=== PATIENT | male | born 1995 | race Caucasian/White ===

== ENCOUNTER 2016-06-21 17:24 | Emergency (ER) | payer BC, OTHER ==
[~2016-06-21] VITALS: Ht 185.4 cm; Wt 104.6 kg
[2016-06-21 17:50] VITALS: TEMP 37.4; Ht 185.4 cm; Wt 104.6 kg
[2016-06-21] MEDS ORDERED: AMOXICILLIN/CLAVULANATE TAB 875 MG TAB PO STA (19:22)
[2016-06-21] MEDS ORDERED: AMOXICIL/CLAVU 875MG HOME PACK PO STA (19:22)
--- NOTE | 2016-06-21 19:41 | DIAGNOSTIC IMAGING REPORT ---
RIGHT HAND MIN 3 VIEWS ROUTINE CLINICAL HISTORY: Bitten by dog, punctures to hands Right trauma COMPARISON: None. DISCUSSION: The bones and joint spaces appear intact. There is no evidence of fracture, dislocation or bony disease. Mild soft tissue edema IMPRESSION: Mild soft tissue edema. No acute bony abnormality. Electronically signed by: Wilberto Bowman M.D. 06/21/2016 7:39 PM Dictated Date/Time: 06/21/2016 7:39 PM
--- NOTE | 2016-06-21 19:43 | DIAGNOSTIC IMAGING REPORT ---
LEFT HAND MIN 3 VIEWS ROUTINE CLINICAL HISTORY: Bitten by dog, punctures to hands trauma COMPARISON: None. DISCUSSION: The bones and joint spaces appear intact. There is no evidence of fracture, dislocation or bony disease. There is no evidence for soft tissue swelling. IMPRESSION: Negative study. Electronically signed by: Wilberto Bowman M.D. 06/21/2016 7:41 PM Dictated Date/Time: 06/21/2016 7:40 PM
[2016-06-21] MEDS ORDERED: AMOX875T PO (20:16)
--- NOTE | 2016-06-21 20:20 | EMERGENCY ROOM VISIT NOTE ---
History First contact with patient: 19:16 Chief Complaint: BITE Stated Complaint: DOG BITE L AND R HAND History of Present Illness The patient is a 20 year old male who presents to the Emergency Room via private vehicle with complaints of "dog bite left and right hand". Patient states that around 2:30 or 3 PM he was at his girlfriends uncles house and he left the dog out of the house and did not put the dog leash, as he was unaware that he needed to the dog ran off. He then ran after the dog and the dog became scared turning on him and biting him. The dog bit him on the hands bilaterally. The dog was a husky and weighs between 40 and 60 pounds. The dog shots are believed to be up-to-date. Patient is right-handed. There has been constant bleeding from the right hand between the thumb and index finger since the event. He rates the pain is a 3/10. There are sharp pain in the right thumb. Minimal tingling in the right thumb. Patient's tetanus is up-to-date. Review of Systems A complete 6-point Review of Systems was discussed with the patient, with pertinent positives and negatives listed in the History of Present Illness. All remaining Review of Systems questions can be considered negative unless otherwise specified. Past Medical/Surgical History Medical Problems: (1) FX PHALANX, HAND NOS-CL (2) NASAL BONE FX-CLOSED Family History No pertinent family history at this time. Social History Smoking Status: Current Every Day Smoker Alcohol Use: none Drug Use: none Marital Status: single Housing Status: lives with family Occupation Status: employed Current/Historical Medications Scheduled Amoxicillin & Pot Clavulanate (Augmentin 875-125 mg), 1 TAB PO BID Allergies Coded Allergies: Ibuprofen (Unverified Adverse Reaction, Mild, STOMACH UPSET/NAUSEA, ) Physical Exam Vital Signs Date Time Temp Pulse Resp B/P Pulse Ox O2 Delivery O2 Flow Rate FiO2 06/21/16 20:33 100 20 132/82 97 06/21/16 17:50 37.4 120 18 135/78 98 Room Air Physical Exam VITAL SIGNS - Vital signs and nursing notes were reviewed. Patient is afebrile , normotensive, tachycardic at 120 bpm and is saturating well on room air at 98% . GENERAL -20-year-old male appearing his stated age who is in no acute distress. Communicates well with provider and answers questions appropriately. SKIN - Without rashes. There is erythema overlying the punctate puncture wounds bilaterally. There are 5 teeth perez on the dorsal aspect of the left hand and a few puncture wounds on the palm. Left hand exhibits a deep puncture wound in the webspace between the thumb and index finger. There are also multiple puncture wounds on this hand. Most of the puncture wounds are superficial, with one being deep in the webspace as noted above. Minimal active bleeding from this. No evidence of infection at this time. HEAD - NC/AT. EXTREMITIES - No clubbing or peripheral cyanosis. No pretibial edema present. Vascular intact in the upper extremity. Minimal tenderness to palpation. Full range of motion of all digits and hands. No evidence of retained teeth. Intact to sensation. Neurovascularly intact. +5/5 strength noted in UE/LE bilaterally. Medical Decision & Procedures ER Provider Diagnostic Interpretation: LEFT HAND MIN 3 VIEWS ROUTINE CLINICAL HISTORY: Bitten by dog, punctures to hands trauma COMPARISON: None. DISCUSSION: The bones and joint spaces appear intact. There is no evidence of fracture, dislocation or bony disease. There is no evidence for soft tissue swelling. IMPRESSION: Negative study. Electronically signed by: Wilberto Bowman M.D. 06/21/2016 7:41 PM Dictated Date/Time: 06/21/2016 7:40 PM RIGHT HAND MIN 3 VIEWS ROUTINE CLINICAL HISTORY: Bitten by dog, punctures to hands Right trauma COMPARISON: None. DISCUSSION: The bones and joint spaces appear intact. There is no evidence of fracture, dislocation or bony disease. Mild soft tissue edema IMPRESSION: Mild soft tissue edema. No acute bony abnormality. Electronically signed by: Wilberto Bowman M.D. 06/21/2016 7:39 PM Dictated Date/Time: 06/21/2016 7:39 PM Medications Administered Medications (Trade) Dose Ordered Sig/Neelam Route Start Time Stop Time Status Last Admin Dose Admin Amoxicillin/ Clavulanate Potassium (Augmentin 875MG Home Pack) 1 homepack UD STAT PO 06/21/16 19:22 06/21/16 19:24 DC 06/21/16 20:18 1 HOMEPACK Amoxicillin/ Clavulanate Potassium (Augmentin Tab) 875 mg NOW STAT PO 06/21/16 19:22 06/21/16 19:24 DC 06/21/16 20:18 875 MG Medical Decision Patient was seen and evaluated as above. After obtaining a thorough history and physical examination radiographs of the hands bilaterally were obtained to rule out fracture, retained teeth. These were negative for either. Patient's hands were cleansed with normal saline. Thorough irrigation of both hands was obtained. These were dressed with bacitracin and covered with Telfa dressing and Coban. Patient did not want anything for pain. Patient did not want any splints. He was given one dose of Augmentin here as well as a home pack. The remainder was sent to his pharmacy for prophylaxis against dog bite. The patient was educated to follow-up regarding today's visit with the orthopedic hand specialist as listed above. He is to return with any new/concerning symptoms or signs of infection which were thoroughly discussed. He was educated upon management. He was educated upon worrisome symptoms in which to return, had questions answered prior to discharge and was discharged home in good condition. The appropriate paperwork was completed for reporting this incident. In evaluation treatment this patient following differential diagnoses were entertained: Hand fracture, retained teeth, cellulitis, among others. Impression Primary Impression: Bite by animal Additional Impression: Cat bite Departure Information Dispostion Home / Self-Care Condition GOOD Prescriptions Amoxicillin & Pot Clavulanate (Augmentin 875-125 mg) 1 Tab Tab 1 TAB PO BID for 9 Days, #18 TAB Prov: Adiel Salter PA-C 06/21/16 Referrals No Doctor, Assigned (PCP) Arthur Gardner MD Patient Instructions My [facility] Additional Instructions You were seen in the emergency department for a dog bite of your hands. X-rays did not reveal any broken bones or retained teeth. Please keep the bandages on for 24 hours and then replace them. Please use Neosporin or bacitracin on the bite wounds for the next 2-3 days. After that please apply dry bandages to the areas. You have indicated that the dog's rabies vaccines are up-to-date. You've been prescribed Augmentin to be taken twice daily for the next 10 days. The remainder was sent to her pharmacy for pickup. This is to help prevent infection from the dog bite. It is recommended he follow-up with a hand specialist regarding today's visit. You've the provided number for a hand surgeon. Please call the number first thing tomorrow morning to schedule follow-up. Please return to the emergency department with any worsening of symptoms to include worsening pain, fevers, chills, redness, swelling, red streaking up yourarm or any new/concerning symptoms. Please return to the emergency department with any new/concerning symptoms. Problem Qualifiers Additional Impression: Cat bite Encounter type: initial encounter Qualified Codes: W55.01XA - Bitten by cat , initial encounter
[2016-06-21 20:33] VITALS: BP 132/82; PULSE 100; O2SAT 97
== END 2016-06-21 20:35 | disposition home or self-care (01) ==
LOC: C.EDB 17:25 → C.EDD 20:35
DX: S61.401A Unspecified open wound of right hand, initial encounter (principal); S61.402A Unspecified open wound of left hand, initial encounter; W54.0XXA Bitten by dog, initial encounter; F17.200 Nicotine dependence, unspecified, uncomplicated

== ENCOUNTER → 2017-02-18 | Outpatient (CLI) | payer BC ==
[~2017-02-18] MED LIST: ONDA4TAB10 SL
[2017-02-18 12:29] LABS: BASO % 0.1 %; BASO ABS # 0.01 K/uL (0-0.2); COMPLETE YES; EOS % 0.5 %; HEMATOCRIT 46.4 % (42-52); IG% 0.1 %; LYMPH % 20.2 %; LYMPH ABS # 1.62 K/uL (1.2-3.4); MEAN CELL VOLUME 84.8 fL (80-100); MEAN CORPUSCULAR HEMOGLOBIN 30.5 pg (25-34); MEAN PLATELET VOLUME 11.1 fL (7.4-10.4); MONO % 5.9 %; NEUT % 73.2 %; PLATELET COUNT 203 K/uL (130-400); RED BLOOD COUNT 5.47 M/uL (4.7-6.1); WHITE BLOOD COUNT 8.03 K/uL (4.8-10.8)
[2017-02-18 12:51] LABS: ALT/SGPT 22 U/L (12-78); AMYLASE 52 U/L (25-115); AST/SGOT 7 U/L (15-37); BLOOD UREA NITROGEN 14 mg/dl (7-18); BUN/CREATININE RATIO 12.5 (10-20); CALCIUM 8.9 mg/dl (8.5-10.1); CARBON DIOXIDE 28 mmol/L (21-32); CHLORIDE 105 mmol/L (98-107); CREATININE 1.08 mg/dl (0.60-1.40); GLUCOSE 100 mg/dl (70-99); POTASSIUM 4.1 mmol/L (3.5-5.1); SODIUM 139 mmol/L (136-145)
[2017-02-18 12:56] LABS: ALKALINE PHOSPHATASE 75 U/L (45-117)
== END | disposition home or self-care (01) ==
LOC: C.LABBFT 11:06
PROVIDERS: ATTEND Physician Assistant Medical
DX: R11.0 Nausea (principal)

== ENCOUNTER 2017-02-22 12:31 | Emergency (ER) | payer BC ==
[~2017-02-22] VITALS: Ht 188 cm; Wt 102.4 kg
[2017-02-22 12:53] VITALS: TEMP 37; Ht 188 cm; Wt 102.4 kg
[2017-02-22] MEDS ORDERED: SODIUM CHLORIDE 0.9% 1000ML 1,000 ML IV STA (13:39)
[2017-02-22] MEDS ORDERED: ONDANSETRON INJ 2 MG/ML 2 ML VIAL IV STA (13:39)
[2017-02-22] MEDS ORDERED: FAMOTIDINE 20MG/102 ML D5W IV STA (14:07)
[2017-02-22] MEDS ORDERED: OPTIRAY 320 IV PRN (15:00)
[2017-02-22 15:06] LABS: URINE APPEARANCE CLOUDY (CLEAR); URINE COLOR DK YELLOW; URINE NITRITE NEG (NEG); URINE SPECIFIC GRAVITY 1.034 (1.000-1.030); UROBILINOGEN POS (NEG)
[2017-02-22 15:06] LABS: BASO % 0.1 %; BASO ABS # 0.01 K/uL (0-0.2); COMPLETE YES; EOS % 0.1 %; HEMATOCRIT 45.3 % (42-52); IG% 0.3 %; LYMPH % 19.4 %; MEAN CELL VOLUME 83.1 fL (80-100); MEAN CORPUSCULAR HEMOGLOBIN 30.1 pg (25-34); MEAN CORPUSCULAR HGB CONC 36.2 g/dl (32-36); MEAN PLATELET VOLUME 10.1 fL (7.4-10.4); MONO % 8.6 %; NEUT % 71.5 %; PLATELET COUNT 191 K/uL (130-400); RED BLOOD COUNT 5.45 M/uL (4.7-6.1); WHITE BLOOD COUNT 7.75 K/uL (4.8-10.8)
[2017-02-22 15:11] LABS: MANUAL MICROSCOPIC REQUIRED? NO; REVIEW REQ? NO; URINE BILIRUBIN NEG (NEG)
[2017-02-22 15:43] LABS: BUN/CREATININE RATIO 14.5 (10-20); CREATININE 1.15 mg/dl (0.60-1.40); MAGNESIUM 2.1 mg/dl (1.8-2.4); POTASSIUM 3.1 mmol/L (3.5-5.1)
[2017-02-22 15:45] LABS: BENZODIAZEPINE, URINE NEG (NEG); COCAINE,URINE NEG (NEG); PHENCYCLIDINE, URINE NEG (NEG)
[2017-02-22 15:46] LABS: ALB/GLOB RATIO 1.1 (0.9-2)
--- NOTE | 2017-02-22 17:09 | DIAGNOSTIC IMAGING REPORT ---
CT SCAN OF THE ABDOMEN AND PELVIS WITH IV CONTRAST CLINICAL HISTORY: Epigastric abdominal pain. Nausea and vomiting. COMPARISON STUDY: Abdominal ultrasound dated 02/22/2017 TECHNIQUE: Following the IV administration of 93 cc of Optiray 320, CT scan of the abdomen and pelvis is performed from the lung bases to the proximal femora. Images are reviewed in the axial, sagittal, and coronal planes. IV contrast was administered without complication. A dose lowering technique was utilized adhering to the principles of ALARA. CT DOSE: 580.96 mGy.cm FINDINGS: Lung bases: The heart is normal in size and without pericardial effusion. There are trace pleural effusions. The lung bases are otherwise clear. Liver: The contrast-enhanced liver is normal in size, contour, and attenuation. There is no intrahepatic biliary ductal dilatation. The hepatic veins and portal veins are patent. Gallbladder: Unremarkable. Spleen: Normal in size and attenuation. Pancreas: Unremarkable. Adrenal glands: Unremarkable. Kidneys: The contrast enhanced kidneys are normal in size and without hydronephrosis. The kidneys enhance symmetrically. Abdominal vasculature: The abdominal aorta is normal in course and caliber. There is a fat-containing umbilical hernia. Bowel: The small bowel and colon are normal in course and caliber. The appendix is well-visualized and normal. Peritoneum: There is no intraperitoneal free air or abdominal ascites. Lymphadenopathy: None. Pelvic viscera: The bladder, prostate, and seminal vesicles are normal as visualized. Skeletal structures: No lytic or blastic lesions are seen. A posterior disc bulge is noted at L5-S1. IMPRESSION: 1. There are no acute infectious or inflammatory findings in the abdomen or pelvis. 2. Trace pleural effusions are identified. Electronically signed by: Shahab Gaines M.D. 02/22/2017 5:08 PM Dictated Date/Time: 02/22/2017 5:00 PM
[2017-02-22] MEDS ORDERED: ONDA4TAB10 SL (17:48)
--- NOTE | 2017-02-22 17:50 | EMERGENCY ROOM VISIT NOTE ---
History First contact with patient: 13:22 Chief Complaint: NAUSEA Stated Complaint: NAUSEA, MILD PAIN, NOT EATEN IN 3-4 DAYS History of Present Illness Patient is an otherwise healthy 21-year-old male who presents the emergency department accompanied by his grandparents for evaluation of nausea 2 weeks. He states his symptoms started out of the blue about 2 weeks ago, when he began to wake up feeling nauseous, and would vomit on occasion. He states that his symptoms were always worse first thing in the morning. The vomiting has improved somewhat, but he still notes near constant nausea. He now has more dry heaves than actual vomiting, because he has been on a clear diet, consisting mostly of sports drinks. He has not had any substantial food to eat for some time. His grandmother that he lost 10 pounds in the last 2 weeks. He notes very slight epigastric pain, but rates it a 1/10, and states that it is tolerable. The nausea is his primary concern. He reports decreased bowel movements, and states that they have been loose, he has he is not eating. He denies diarrhea, no melena, easy or hematemesis. He denies any urinary symptoms. He was seen by his primary care provider last week. He had some laboratory studies performed at that time which were normal, and was started on Nexium, which he has been taking for the last 5 days. He also had an ultrasound earlier today, which was normal per the patient. He was supposed to have a follow-up appointment in about a week and a half, but he states he could not wait to the appointment. He denies any sick contacts at home. No unusual food or water consumption, no recent antibiotic use or foreign travel. He has well water as a source at home, but his grandparents drink the same water and are not ill. He does admit to heavy caffeine consumption, he states he drinks mostly Mountain Dew. Uses chewing tobacco but does not smoke, drinks alcohol rarely, last was about 2 months ago. He denies any illicit drug use. Review of Systems Review of systems as per HPI. All other systems reviewed were negative. 10 systems reviewed. Past Medical/Surgical History Medical Problems: (1) Back pain (2) Back pain (3) Back strain (4) Bite by animal (5) Bite by animal (6) Cat bite (7) Cat bite (8) FX PHALANX, HAND NOS-CL (9) Injury of right hand (10) Lumbar back pain (11) NASAL BONE FX-CLOSED (12) No Known Active Medical Problems (13) Rhomboid muscle strain Surgical Problems: (1) History of nasal surgery Electronic medical records are reviewed and summarized as above/below. See Problem List. Social History Smoking Status: Former Smoker Alcohol Use: none Drug Use: none Marital Status: single Housing Status: lives with family Occupation Status: employed Current/Historical Medications Scheduled PRN Ondasetron Odt (Zofran Odt), 4 MG SL Q6H PRN for Nausea or Vomiting Physical Exam Vital Signs Date Time Temp Pulse Resp B/P (MAP) Pulse Ox O2 Delivery O2 Flow Rate FiO2 02/22/17 18:02 79 16 133/60 98 02/22/17 17:11 104 20 141/87 98 Room Air 02/22/17 15:28 80 16 126/76 99 Room Air 02/22/17 14:38 90 18 129/79 98 Room Air 02/22/17 12:53 37.0 104 20 131/61 99 Room Air Physical Exam CONSTITUTIONAL: Patient is a well-appearing 21-year-old white male who is awake and alert and in no acute distress. EYES: Pupils equal, round, reactive to light and accommodation. EOMs intact without nystagmus. Sclera are anicteric. ENT: Tympanic membranes intact, with normal landmarks. External canals are clear. Oral and nasopharynx are clear. Mucous membranes are moist, no lesions , tongue and gums appear normal. NECK: No bruits auscultated. Supple without lymphadenopathy. No thyromegaly. No meningeal signs. Full active range of motion without discomfort. CARDIOVASCULAR: Regular rate and rhythm, with normal S1 and S2, no murmur or gallop or rub is heard. No carotid bruits auscultated. No JVD. Peripheral pulses easily palpable. RESPIRATORY: Breath sounds equal and clear to auscultation without wheezes, rales, or rhonchi heard. Full and equal chest expansion without accessory muscle use or retractions. ABDOMEN: Bowel sounds are present. Abdomen is soft, nondistended, mildly tender in the epigastric area, without guarding, rebound or rigidity. There is no pain in the right upper quadrant. Negative Gray sign. INTEGUMENTARY: No lesions or rash, normal skin turgor. LYMPH: No lymphadenopathy. Medical Decision & Procedures ER Provider Diagnostic Interpretation: Outpatient ultrasound of the abdomen performed earlier today is as follows: ABDOMEN COMPLETE (US) CLINICAL HISTORY: 21 years-old Male with R11.0. Acute nausea. TECHNIQUE: Multiple real time sonographic images of the abdomen were obtained assessing collier-scale appearance. FINDINGS: PANCREAS: The pancreas is partially obscured by bowel gas. The visualized portions of the pancreas are normal without focal lesion or pancreatic duct dilatation. LIVER: The liver demonstrates a homogeneous parenchymal echotexture. There is no intrahepatic bile duct dilation, focal lesion, or contour nodularity. There is no ascites. GALLBLADDER: The gallbladder is fluid-filled without cholelithiasis, wall thickening, or pericholecystic fluid. Negative sonographic Gray's sign. The common bile duct measures 0.3 cm. RIGHT KIDNEY: The right kidney measures 12.8 cm. The parenchymal echotexture and cortical thickness are normal. No nephrolithiasis or hydronephrosis. LEFT KIDNEY: The left kidney measures 11.6 cm. The parenchymal echotexture and cortical thickness are normal. No nephrolithiasis or hydronephrosis. SPLEEN: The spleen measures 12 cm and is normal in echotexture. No focal lesions are identified. VASCULATURE: Imaged portions of the aorta and IVC are unremarkable. Aortic bifurcation not visualized secondary to scarring bowel gas. IMPRESSION: Unremarkable right upper quadrant ultrasound. No cholelithiasis, sonographic evidence of acute cholecystitis or biliary ductal dilation. The above report was generated using voice recognition software. It may contain grammatical, syntax or spelling errors. Electronically signed by: Morgan Zuñiga M.D. 02/22/2017 8:26 AM Dictated Date/Time: 02/22/2017 8:[address] SCAN OF THE ABDOMEN AND PELVIS WITH IV CONTRAST CLINICAL HISTORY: Epigastric abdominal pain. Nausea and vomiting. COMPARISON STUDY: Abdominal ultrasound dated 02/22/2017 TECHNIQUE: Following the IV administration of 93 cc of Optiray 320, CT scan of the abdomen and pelvis is performed from the lung bases to the proximal femora. Images are reviewed in the axial, sagittal, and coronal planes. IV contrast was administered without complication. A dose lowering technique was utilized adhering to the principles of ALARA. CT DOSE: 580.96 mGy.cm FINDINGS: Lung bases: The heart is normal in size and without pericardial effusion. There are trace pleural effusions. The lung bases are otherwise clear. Liver: The contrast-enhanced liver is normal in size, contour, and attenuation. There is no intrahepatic biliary ductal dilatation. The hepatic veins and portal veins are patent. Gallbladder: Unremarkable. Spleen: Normal in size and attenuation. Pancreas: Unremarkable. Adrenal glands: Unremarkable. Kidneys: The contrast enhanced kidneys are normal in size and without hydronephrosis. The kidneys enhance symmetrically. Abdominal vasculature: The abdominal aorta is normal in course and caliber. There is a fat-containing umbilical hernia. Bowel: The small bowel and colon are normal in course and caliber. The appendix is well-visualized and normal. Peritoneum: There is no intraperitoneal free air or abdominal ascites. Lymphadenopathy: None. Pelvic viscera: The bladder, prostate, and seminal vesicles are normal as visualized. Skeletal structures: No lytic or blastic lesions are seen. A posterior disc bulge is noted at L5-S1. IMPRESSION: 1. There are no acute infectious or inflammatory findings in the abdomen or pelvis. 2. Trace pleural effusions are identified. Laboratory Results 02/22/17 14:35 Red Blood Count 5.45, Mean Corpuscular Volume 83.1, Mean Corpuscular Hemoglobin 30.1, Mean Corpuscular Hemoglobin Concent 36.2, Mean Platelet Volume 10.1, Neutrophils (%) (Auto) 71.5, Lymphocytes (%) (Auto) 19.4, Monocytes (%) (Auto) 8.6, Eosinophils (%) (Auto) 0.1, Basophils (%) (Auto) 0.1, Neutrophils # (Auto) 5.54, Lymphocytes # (Auto) 1.50, Monocytes # (Auto) 0.67, Eosinophils # (Auto) 0.01, Basophils # (Auto) 0.01 02/22/17 14:35 Test 02/22/17 14:30 02/22/17 14:35 Urine Color DK YELLOW Urine Appearance CLOUDY (CLEAR) Urine pH 6.0 (4.5-7.5) Urine Specific [place] 1.034 (1.000-1.030) Urine Protein TRACE (NEG) Urine Glucose (UA) NEG (NEG) Urine Ketones 3+ (NEG) Urine Occult Blood NEG (NEG) Urine Nitrite NEG (NEG) Urine Bilirubin NEG (NEG) Urine Urobilinogen POS (NEG) Urine Leukocyte Esterase NEG (NEG) Urine WBC (Auto) 1-5 /hpf (0-5) Urine RBC (Auto) 5-10 /hpf (0-4) Urine Hyaline Casts (Auto) 1-5 /lpf (0-5) Urine Epithelial Cells (Auto) 10-20 /lpf (0-5) Urine Bacteria (Auto) NEG (NEG) Urine Opiates Screen NEG (NEG) Urine Methadone, Qualitative NEG (NEG) Urine Barbiturates NEG (NEG) Urine Phencyclidine (PCP) Level NEG (NEG) Ur Amphetamine/Methamphetamine NEG (NEG) MDMA (Ecstasy) Screen NEG (NEG) Urine Benzodiazepines Screen NEG (NEG) Urine Cocaine Metabolite NEG (NEG) Urine Marijuana (THC) POS (NEG) White Blood Count 7.75 K/uL (4.8-10.8) Red Blood Count 5.45 M/uL (4.7-6.1) Hemoglobin 16.4 g/dL (14.0-18.0) Hematocrit 45.3 % (42-52) Mean Corpuscular Volume 83.1 fL (80-100) Mean Corpuscular Hemoglobin 30.1 pg (25-34) Mean Corpuscular Hemoglobin Concent 36.2 g/dl (32-36) Platelet Count 191 K/uL (130-400) Mean Platelet Volume 10.1 fL (7.4-10.4) Neutrophils (%) (Auto) 71.5 % Lymphocytes (%) (Auto) 19.4 % Monocytes (%) (Auto) 8.6 % Eosinophils (%) (Auto) 0.1 % Basophils (%) (Auto) 0.1 % Neutrophils # (Auto) 5.54 K/uL (1.4-6.5) Lymphocytes # (Auto) 1.50 K/uL (1.2-3.4) Monocytes # (Auto) 0.67 K/uL (0.11-0.59) Eosinophils # (Auto) 0.01 K/uL (0-0.5) Basophils # (Auto) 0.01 K/uL (0-0.2) RDW Standard Deviation 37.4 fL (36.4-46.3) RDW Coefficient of Variation 12.5 % (11.5-14.5) Immature Granulocyte % (Auto) 0.3 % Immature Granulocyte # (Auto) 0.02 K/uL (0.00-0.02) Erythrocyte Sedimentation Rate 7 mm/hr (0-14) Anion Gap 8.0 mmol/L (3-11) Est Creatinine Clear Calc Drug Dose 128.7 ml/min Estimated GFR () 104.1 Estimated GFR (Non- 89.8 BUN/Creatinine Ratio 14.5 (10-20) Calcium Level 9.0 mg/dl (8.5-10.1) Magnesium Level 2.1 mg/dl (1.8-2.4) Total Bilirubin 0.7 mg/dl (0.2-1) Aspartate Amino Transf (AST/SGOT) 8 U/L (15-37) Alanine Aminotransferase (ALT/SGPT) 15 U/L (12-78) Alkaline Phosphatase 73 U/L (45-117) Total Protein 8.1 gm/dl (6.4-8.2) Albumin 4.3 gm/dl (3.4-5.0) Globulin 3.8 gm/dl (2.5-4.0) Albumin/Globulin Ratio 1.1 (0.9-2) Lipase 77 U/L (73-393) Medications Administered Medications (Trade) Dose Ordered Sig/Neelam Route Start Time Stop Time Status Last Admin Dose Admin Sodium Chloride 1,000 ml @ 250 mls/hr Q4H STAT IV 02/22/17 13:39 02/22/17 17:38 DC 02/22/17 14:41 250 MLS/HR Ondansetron HCl (Zofran Inj) 4 mg NOW STAT IV 02/22/17 13:39 02/22/17 13:42 DC 02/22/17 14:44 4 MG Famotidine (Pepcid 20mg/100 ml) 20 mg ONE STAT IV 02/22/17 14:07 02/22/17 14:08 DC 02/22/17 14:45 20 MG ED Course The patient was seen and assessed as above. His old records were reviewed, specifically his outpatient laboratory studies and ultrasound from last week. He presents emergency department for evaluation of epigastric pain and nausea 2 weeks. IV lock was initiated. He was hydrated with normal saline solution. He was medicated with Zofran 4 mg and Pepcid 20 mg IV. CBC with differential, sedimentation rate, CMP, magnesium level, lipase, urinalysis and urine toxicology screens were ordered. Given his persistent symptoms, CT scan of the abdomen pelvis with IV and oral contrast was ordered. Laboratory studies noted a normal white count at 7700. H&H is normal. Inflammatory markers are not elevated. Electrolytes note a very mild hypokalemia, remainder his electrolytes and renal functions are within normal limits. LFTs are not elevated. Lipase is not elevated. Urinalysis noted 3+ urine ketones. The patient was hydrated aggressively in the emergency department. No other worrisome findings for infection. Urine toxicology screen was positive for marijuana. CT scan of the abdomen and pelvis was negative. There was no acute infectious or inflammatory findings noted in the abdomen or the pelvis. Conservative care measures were discussed with the patient. Differential diagnoses entertained included GERD, esophagitis, gastritis, peptic ulcer disease, pancreatitis, biliary colic, acute cholecystitis, cholelithiasis, ascending cholangitis, bowel obstruction, perforation, among others. The patient denied any illicit drug use, however urine drug screen is positive for marijuana. Regular marijuana use can cause nausea/cyclic vomiting syndrome. He was encouraged to continue the Nexium that was previously recommended by his primary care provider. He can use Pepcid or Zantac for breakthrough. He was given Zofran as needed for nausea, and instructed on dietary changes. He was advised to refrain from marijuana use. He has a follow-up appointment with his PCP in about a week and a half, which he is encouraged to keep. The patient was discharged home with his family in good condition. Vital signs were stable. Medical Decision See Emergency Department course Medication Reconcilliation Current Medication List: was personally reviewed by mn Blood Pressure Screening Patient's blood pressure: Normal blood pressure Blood pressure disposition: Did not require urgent referral Impression Primary Impression: Nausea Additional Impression: Epigastric abdominal pain Departure Information Prescriptions Ondasetron Odt (ZOFRAN ODT) 4 Mg Tab 4 MG SL Q6H Y for Nausea or Vomiting, #20 TAB Prov: Makayla Slaughter PA 02/22/17 Referrals Arthur Jo M.D. (PCP) Patient Instructions My [facility] Additional Instructions Continue Nexium as prescribed. Acetaminophen(Tylenol) may be used for fever or pain. Use 1000mg every eight hours as needed. Avoid using more than 3000mg in a 24 hour period. This is available over the counter. Zofran(odansetron) tablets 4mg: Take one and allow it to dissolve in your mouth every four hours as needed for nausea or vomiting. May also use Pepcid or Zantac (available over the counter) according to package instructions. Read all the package inserts or medication information paperwork provided. If you have any questions or concerns call your primary provider, pharmacist or the ER for assistance. Rest and drink plenty of fluids as tolerated. Slow sips of water or sports drinks are recommended instead of large amounts all at once. Avoid alcohol, tobacco products, excessive caffeine, and any spicy or acidic foods. Stop smoking marijuana. Continue current medications. Once your stomach is settled start with a clear liquid diet (jello, soup broth, etc.) and then advance as tolerated. You should avoid full, heavy meals for about 24 hrs from the time your symptoms resolved. Return to the ER immediately for worsening or persistent abdominal pain, vomiting, fevers, chest pains, difficulty breathing, black or bloody stools, worsening of your condition, or as needed. Follow up with your primary physician in 1-2 days for a recheck of your current condition. Problem Qualifiers
[2017-02-22 18:02] VITALS: BP 133/60; PULSE 79; O2SAT 98
== END 2017-02-22 18:03 | disposition home or self-care (01) ==
LOC: C.EDB 12:32
DX: R11.0 Nausea (principal); R10.13 Epigastric pain; Z87.81 Personal history of (healed) traumatic fracture; Z87.828 Personal history of other (healed) physical injury and trauma; Z87.891 Personal history of nicotine dependence

== ENCOUNTER → 2017-02-22 | Outpatient (CLI) | payer BC ==
--- NOTE | 2017-02-22 08:27 | DIAGNOSTIC IMAGING REPORT ---
ABDOMEN COMPLETE (US) CLINICAL HISTORY: 21 years-old Male with R11.0. Acute nausea. TECHNIQUE: Multiple real time sonographic images of the abdomen were obtained assessing collier-scale appearance. FINDINGS: PANCREAS: The pancreas is partially obscured by bowel gas. The visualized portions of the pancreas are normal without focal lesion or pancreatic duct dilatation. LIVER: The liver demonstrates a homogeneous parenchymal echotexture. There is no intrahepatic bile duct dilation, focal lesion, or contour nodularity. There is no ascites. GALLBLADDER: The gallbladder is fluid-filled without cholelithiasis, wall thickening, or pericholecystic fluid. Negative sonographic Gray's sign. The common bile duct measures 0.3 cm. RIGHT KIDNEY: The right kidney measures 12.8 cm. The parenchymal echotexture and cortical thickness are normal. No nephrolithiasis or hydronephrosis. LEFT KIDNEY: The left kidney measures 11.6 cm. The parenchymal echotexture and cortical thickness are normal. No nephrolithiasis or hydronephrosis. SPLEEN: The spleen measures 12 cm and is normal in echotexture. No focal lesions are identified. VASCULATURE: Imaged portions of the aorta and IVC are unremarkable. Aortic bifurcation not visualized secondary to scarring bowel gas. IMPRESSION: Unremarkable right upper quadrant ultrasound. No cholelithiasis, sonographic evidence of acute cholecystitis or biliary ductal dilation. The above report was generated using voice recognition software. It may contain grammatical, syntax or spelling errors. Electronically signed by: Morgan Zuñiga M.D. 02/22/2017 8:26 AM Dictated Date/Time: 02/22/2017 8:22 AM
== END | disposition home or self-care (01) ==
LOC: C.ULTR 07:38
PROVIDERS: ATTEND Physician Assistant Medical
DX: R11.0 Nausea (principal)

== ENCOUNTER 2018-12-21 00:14 | Inpatient (IN) ==
[2018-12-21 01:10] LABS: Appearance Urine Clear (Clear); Bacteria Urine Automated Negative (Negative); Bilirubin Urine Negative (Negative); Blood Urine Trace (Negative); Color Urine Yellow; Glucose Urine UA Negative (Negative); Ketones Urine Negative (Negative); Leukocyte Esterase Urine Negative (Negative); Nitrite Urine Negative (Negative); Protein Urine Negative (Negative); RBC Urine Automated 0-4 /hpf (0-4); Specific Gravity Urine 1.021 (1.000-1.030); Urobilinogen Urine Negative (Negative)
[2018-12-21 01:17] LABS: Basophils # (auto) 0.01 K/uL (0-0.2); Basophils % (auto) 0.1 %; Eosinophils # (auto) 0.04 K/uL (0-0.5); Eosinophils % (auto) 0.5 %; Hematocrit (blood only) 43.8 % (42-52); Hemoglobin 16.2 g/dL (14.0-18.0); Immature Granulocytes # (auto) 0.01 K/uL (0.00-0.02); Immature Granulocytes % (auto) 0.1 %; Lymphocytes # (auto) 2.57 K/uL (1.2-3.4); Lymphocytes % (auto) 30.8 %; Mean Corpuscular Volume 83.3 fL (80-100); Mean Platelet Volume 9.5 fL (7.4-10.4); Monocytes # (auto) 0.46 K/uL (0.11-0.59); Monocytes % (auto) 5.5 %; Neutrophils # (auto) 5.25 K/uL (1.4-6.5); Platelet Count 222 K/uL (130-400); RDW Coefficient of Variation 12.7 % (11.5-14.5); RDW Standard Deviation 37.9 fL (36.4-46.3); Red Blood Count 5.26 M/uL (4.7-6.1); White Blood Count 8.34 K/uL (4.8-10.8)
[2018-12-21 01:27] LABS: Amphetamines+Metham, Urine Neg (Neg); Barbiturates, Urine Neg (Neg); Benzodiazepine, Urine Neg (Neg); Cocaine, Urine Neg (Neg); MDMA (Ecstacy), Urine Neg (Neg); Methadone, Urine Neg (Neg); Opiate, Urine Neg (Neg); Phencyclidine, Urine Neg (Neg)
[2018-12-21 01:40] LABS: Albumin Level 3.8 gm/dl (3.4-5.0); BUN Creatinine Ratio 14.4 (10-20); Calcium 8.2 mg/dl (8.5-10.1); Creatinine Clr Calc Pharmacy 128.5 ml/min; Est GFR (Non-African American) 91.5; Potassium 3.8 mmol/L (3.5-5.1)
[2018-12-21 01:44] LABS: Acetaminophen < 2 ug/ml (10-30); Salicylate < 1.7 mg/dl (2.8-20)
[2018-12-21 01:49] LABS: Albumin Globulin Ratio 1.1 (0.9-2); Bilirubin,Total 0.2 mg/dl (0.2-1); Globulin 3.5 gm/dl (2.5-4.0); Total Protein 7.3 gm/dl (6.4-8.2)
--- NOTE | 2018-12-21 05:39 | Emergency Department Note ---
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 Per the police, the patient sent texts to his ex- girlfriend that he was going to overdose. They note that the patient had a DUI 2 nights ago. They report that the patient recently lost his child. They state that the patient has guns in his house, but does not have access to them. They report that the patient lives with his grandparents. They state that the patient has a history of mental health issues and sees someone for it. Per the patient, he states that he took double to triple of his [place] medication tonight. He notes that he usually takes [place] and Lexapro for his depression, and reports that his normal dose was not working. He notes that he has been on this medication for a month now. He states that he took more than prescribed because he thought it would help his depression. The patient states that does not want to harm himself, but does not care what happens to him. He denies any past suicidal ideation. He denies any homicidal ideation. The patient reports that he has been having more frequent nightmares recently. He states his DUI the other night ago was his second one. The patient states that that night he drank a lot, but tonight he only had 5-6 beers. 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 He notes that he moved into his grandparents house after his second DUI. He states that he normally is shaky when he sits. He denies any abdominal pain. He denies any recent injury. The patient states that he smokes, but denies any drug use. He states that he is eating and drinking normally. Home Medications Home Medications Medication Instructions Recorded Confirmed Type escitalopram oxalate 10 mg PO DAILY 12/21/18 12/21/18 History lithium carbonate 150 mg PO DAILY 12/21/18 12/21/18 History lithium carbonate 300 mg PO HS 12/21/18 12/21/18 History Allergies Allergy/AdvReac Type Severity Reaction Status Date / Time No Known Allergies Allergy Verified 12/21/18 01:08 Past Med/Surg History Medical History Depression (Chronic) Social History Preferred Language: Frisian Feels Safe at Home: Yes Smoking Status: Current every day smoker Tobacco Type: cigarettes ; Review of Systems See HPI for pertinent positives & negatives. and A total of 10 systems reviewed and were otherwise negative Physical Exam Vital Signs Vital Signs - 24 hr 12/21/18 00:15 12/21/18 02:00 12/21/18 03:42 Temperature 36.8 C Temperature Source Oral Sepsis Recent Fever Within 48 Hours No Sepsis New/Unexplained Change in Mental Status No Sepsis Action Taken by Nursing No Action Required Pulse Rate 142 H Pulse Rate [Radial] 121 H 113 H Pulse Rhythm [Radial] Regular Respiratory Rate 20 20 18 Respiratory Effort / Characteristics Non-Labored Respiratory Depth Normal Respiratory Pattern Regular Blood Pressure 119/60 Blood Pressure [Right Arm] 133/51 L 113/48 L Blood Pressure Mean 79 Blood Pressure Mean [Right Arm] 78 69 Blood Pressure Position Sitting Pulse Oximetry 97 97 97 Oxygen Delivery Method Room Air Room Air Room Air HEENT: Head - normocephalic and atraumatic Pupils are equal, round, and reactive to light. Extraocular eye muscles are intact, and sclera are anicteric. Nose - moist nasal mucosa without discharge. Mouth - moist buccal mucosa. Oropharynx is nonerythematous and there is no tonsillar exudate or edema noted. Neck: Supple; no cervical lymphadenopathy. Heart: Tachycardic. Regular rhythm. There is a normal S1 and S2 with no murmurs, clicks, or gallops appreciated. Lungs: Clear to auscultation bilaterally with no wheezes, rales, or rhonchi. Abdomen: Soft, completely nontender, nondistended, with good bowel sounds. There are no palpable pulsatile masses or hepatosplenomegaly. There is no guarding, rigidity, or rebound noted. Extremities: No evidence of cyanosis, clubbing, or edema. There are easily palpable peripheral pulses. Skin: warm and dry with good turgor and no rashes. Psych: Patient is cooperative, has flat affect, denies homicidal ideation, when questioned about suicidal ideation he just does not care what happens. Course 0037: The patient was evaluated in room A5, and a complete history and physical examination were performed. Labs were drawn as above. I discussed the case with the state troopers who brought the patient to the emergency department. They filled out a 302 petition. 0147: I went to reevaluate the patient and he was sleeping. I woke him up and reviewed his lab results with him and asked if he was willing to admit himself as a psych inpatient. The patient states that he wants to go home. I will reevaluate the patient when he is more sober. 0420: I reevaluated the patient and discussed involuntary admission, the patient states that wants to talk to his diabetes educator, but reported that it was too early. I explained to him the difference between involuntary and voluntary admission. He was unwilling to talk anymore and refused to sign any paperwork. 0451: [facility] was called for involuntary commitment. 0539: The delicate presented to the emergency department and the patient will be admitted to [address] [place] [address]. Medical Decision Making Differential Diagnosis Differential diagnoses include but are not limited to alcohol abuse, mood disorder, thought disorder, medication overdose, and suicidal ideation. Medical Records Attestation: I reviewed the patient's medical records. Home Medications Current Medication List: was personally reviewed by me Laboratory Data Attestation: I reviewed the patient's lab results. Result diagrams: 12/21/18 00:56 12/21/18 00:56 Lab Results 12/21/18 12/21/18 12/21/18 Range/Units 00:35 00:35 00:56 WBC 8.34 (4.8-10.8) K/uL RBC 5.26 (4.7-6.1) M/uL Hgb 16.2 (14.0-18.0) g/dL Hct 43.8 (42-52) % MCV 83.3 (80-100) fL MCH 30.8 (25-34) pg MCHC 37.0 H (32-36) g/dL RDW Std Deviation 37.9 (36.4-46.3) fL RDW Coeff of Siva 12.7 (11.5-14.5) % Plt Count 222 (130-400) K/uL MPV 9.5 (7.4-10.4) fL Immature Gran % (Auto) 0.1 % Neut % (Auto) 63.0 % Lymph % (Auto) 30.8 % [place] % (Auto) 5.5 % Eos % (Auto) 0.5 % Baso % (Auto) 0.1 % Immature Gran # (Auto) 0.01 (0.00-0.02) K/uL Neut # (Auto) 5.25 (1.4-6.5) K/uL Lymph # (Auto) 2.57 (1.2-3.4) K/uL [place] # (Auto) 0.46 (0.11-0.59) K/uL Eos # (Auto) 0.04 (0-0.5) K/uL Baso # (Auto) 0.01 (0-0.2) K/uL Sodium (136-145) mmol/L Potassium (3.5-5.1) mmol/L Chloride (98-107) mmol/L Carbon Dioxide (21-32) mmol/L Anion Gap (3-11) BUN (7-18) mg/dl Creatinine (0.6-1.4) mg/dl Est Cr Clr Drug Dosing ml/min Est GFR ( Amer) Est GFR (Non-Af Amer) BUN/Creatinine Ratio (10-20) Glucose (70-99) mg/dl Calcium (8.5-10.1) mg/dl Total Bilirubin (0.2-1) mg/dl AST (15-37) U/L ALT (12-78) U/L Alkaline Phosphatase (45-117) U/L Total Protein (6.4-8.2) gm/dl Albumin (3.4-5.0) gm/dl Globulin (2.5-4.0) gm/dl Albumin/Globulin Ratio (0.9-2) TSH (0.300-4.500) uIu/ml Urine Color Yellow Urine Appearance Clear (Clear) Urine pH 5.0 (4.5-7.5) Ur Specific [place] 1.021 (1.000-1.030) Urine Protein Negative (Negative) Urine Glucose (UA) Negative (Negative) Urine Ketones Negative (Negative) Urine Blood Trace H (Negative) Urine Nitrite Negative (Negative) Urine Bilirubin Negative (Negative) Urine Urobilinogen Negative (Negative) Ur Leukocyte Esterase Negative (Negative) Urine WBC (Auto) 1-5 (0-5) /hpf Urine RBC (Auto) 0-4 (0-4) /hpf U Hyaline Cast (Auto) 1-5 (0-5) /lpf U Epithel Cells (Auto) 5-10 H (0-5) /lpf Urine Bacteria (Auto) Negative (Negative) Salicylates (2.8-20) mg/dl Urine Opiates Screen Neg (Neg) Ur Methadone, Qual Neg (Neg) Acetaminophen (10-30) ug/ml Urine Barbiturates Neg (Neg) Ur Phencyclidine (PCP) Neg (Neg) U Amphetamin/Meth Scrn Neg (Neg) MDMA (Ecstasy) Screen Neg (Neg) U Benzodiazepines Scrn Neg (Neg) [place] (0.6-1.2) mmol/L Ur Cocaine Metabolite Neg (Neg) U Marijuana (THC) Screen Neg (Neg) Ethyl Alcohol mg/dL (0-3) mg/dl 12/21/18 12/21/18 12/21/18 Range/Units 00:56 00:56 00:56 WBC (4.8-10.8) K/uL RBC (4.7-6.1) M/uL Hgb (14.0-18.0) g/dL Hct (42-52) % MCV (80-100) fL MCH (25-34) pg MCHC (32-36) g/dL RDW Std Deviation (36.4-46.3) fL RDW Coeff of Siva (11.5-14.5) % Plt Count (130-400) K/uL MPV (7.4-10.4) fL Immature Gran % (Auto) % Neut % (Auto) % Lymph % (Auto) % [place] % (Auto) % Eos % (Auto) % Baso % (Auto) % Immature Gran # (Auto) (0.00-0.02) K/uL Neut # (Auto) (1.4-6.5) K/uL Lymph # (Auto) (1.2-3.4) K/uL [place] # (Auto) (0.11-0.59) K/uL Eos # (Auto) (0-0.5) K/uL Baso # (Auto) (0-0.2) K/uL Sodium 142 (136-145) mmol/L Potassium 3.8 (3.5-5.1) mmol/L Chloride 109 H (98-107) mmol/L Carbon Dioxide 23 (21-32) mmol/L Anion Gap 10.0 (3-11) BUN 16 (7-18) mg/dl Creatinine 1.12 (0.6-1.4) mg/dl Est Cr Clr Drug Dosing 128.5 ml/min Est GFR ( Amer) 106.0 Est GFR (Non-Af Amer) 91.5 BUN/Creatinine Ratio 14.4 (10-20) Glucose 98 (70-99) mg/dl Calcium 8.2 L (8.5-10.1) mg/dl Total Bilirubin 0.2 (0.2-1) mg/dl AST 12 L (15-37) U/L ALT 20 (12-78) U/L Alkaline Phosphatase 64 (45-117) U/L Total Protein 7.3 (6.4-8.2) gm/dl Albumin 3.8 (3.4-5.0) gm/dl Globulin 3.5 (2.5-4.0) gm/dl Albumin/Globulin Ratio 1.1 (0.9-2) TSH 1.880 (0.300-4.500) uIu/ml Urine Color Urine Appearance (Clear) Urine pH (4.5-7.5) Ur Specific [place] (1.000-1.030) Urine Protein (Negative) Urine Glucose (UA) (Negative) Urine Ketones (Negative) Urine Blood (Negative) Urine Nitrite (Negative) Urine Bilirubin (Negative) Urine Urobilinogen (Negative) Ur Leukocyte Esterase (Negative) Urine WBC (Auto) (0-5) /hpf Urine RBC (Auto) (0-4) /hpf U Hyaline Cast (Auto) (0-5) /lpf U Epithel Cells (Auto) (0-5) /lpf Urine Bacteria (Auto) (Negative) Salicylates < 1.7 L (2.8-20) mg/dl Urine Opiates Screen (Neg) Ur Methadone, Qual (Neg) Acetaminophen < 2 L (10-30) ug/ml Urine Barbiturates (Neg) Ur Phencyclidine (PCP) (Neg) U Amphetamin/Meth Scrn (Neg) MDMA (Ecstasy) Screen (Neg) U Benzodiazepines Scrn (Neg) [place] (0.6-1.2) mmol/L Ur Cocaine Metabolite (Neg) U Marijuana (THC) Screen (Neg) Ethyl Alcohol mg/dL 170.0 H (0-3) mg/dl 12/21/18 Range/Units 00:56 WBC (4.8-10.8) K/uL RBC (4.7-6.1) M/uL Hgb (14.0-18.0) g/dL Hct (42-52) % MCV (80-100) fL MCH (25-34) pg MCHC (32-36) g/dL RDW Std Deviation (36.4-46.3) fL RDW Coeff of Siva (11.5-14.5) % Plt Count (130-400) K/uL MPV (7.4-10.4) fL Immature Gran % (Auto) % Neut % (Auto) % Lymph % (Auto) % [place] % (Auto) % Eos % (Auto) % Baso % (Auto) % Immature Gran # (Auto) (0.00-0.02) K/uL Neut # (Auto) (1.4-6.5) K/uL Lymph # (Auto) (1.2-3.4) K/uL [place] # (Auto) (0.11-0.59) K/uL Eos # (Auto) (0-0.5) K/uL Baso # (Auto) (0-0.2) K/uL Sodium (136-145) mmol/L Potassium (3.5-5.1) mmol/L Chloride (98-107) mmol/L Carbon Dioxide (21-32) mmol/L Anion Gap (3-11) BUN (7-18) mg/dl Creatinine (0.6-1.4) mg/dl Est Cr Clr Drug Dosing ml/min Est GFR ( Amer) Est GFR (Non-Af Amer) BUN/Creatinine Ratio (10-20) Glucose (70-99) mg/dl Calcium (8.5-10.1) mg/dl Total Bilirubin (0.2-1) mg/dl AST (15-37) U/L ALT (12-78) U/L Alkaline Phosphatase (45-117) U/L Total Protein (6.4-8.2) gm/dl Albumin (3.4-5.0) gm/dl Globulin (2.5-4.0) gm/dl Albumin/Globulin Ratio (0.9-2) TSH (0.300-4.500) uIu/ml Urine Color Urine Appearance (Clear) Urine pH (4.5-7.5) Ur Specific [place] (1.000-1.030) Urine Protein (Negative) Urine Glucose (UA) (Negative) Urine Ketones (Negative) Urine Blood (Negative) Urine Nitrite (Negative) Urine Bilirubin (Negative) Urine Urobilinogen (Negative) Ur Leukocyte Esterase (Negative) Urine WBC (Auto) (0-5) /hpf Urine RBC (Auto) (0-4) /hpf U Hyaline Cast (Auto) (0-5) /lpf U Epithel Cells (Auto) (0-5) /lpf Urine Bacteria (Auto) (Negative) Salicylates (2.8-20) mg/dl Urine Opiates Screen (Neg) Ur Methadone, Qual (Neg) Acetaminophen (10-30) ug/ml Urine Barbiturates (Neg) Ur Phencyclidine (PCP) (Neg) U Amphetamin/Meth Scrn (Neg) MDMA (Ecstasy) Screen (Neg) U Benzodiazepines Scrn (Neg) [place] 0.6 (0.6-1.2) mmol/L Ur Cocaine Metabolite (Neg) U Marijuana (THC) Screen (Neg) Ethyl Alcohol mg/dL (0-3) mg/dl Blood Pressure Blood Pressure Findings: Low blood pressure Blood Pressure Disposition: further management by hospitalist MARQUEZ Narrative The patient is a 23 year old male who presents to the Emergency Room for a mental health evaluation. The patient had been drinking alcohol tonight. He has been very depressed after his son approximately 6 months ago. The patient got a second DUI 2 nights ago and felt even more desperate. He made some suicidal statements by text message to the mother of his children. He explained to me that he did not care what happened to him whether he lived or . The patient does admit to taking an increased dose of lithium tonight in an effort to help the depression. The patient remained hemodynamically stable. His lithium level was not elevated. The patient was intoxicated. We waited until his blood alcohol level was near 80 before we did a formal psychiatric evaluation. The patient had a lengthy discussion initially with the ED psychiatric immigration case manager. He refused to sign himself in voluntarily. 302 paperwork was signed. He was excepted to 3 S. Impression & Plan Suicidal ideation, Alcohol intoxication Discharge Plan Visit Data Chief Complaint: Mental Health Evaluation Stated Complaint: MENTAL HEALTH EVALUATION ED Provider: Anahy Gama Discharge Problem: Suicidal ideation, Alcohol intoxication Patient Disposition: Admitted As Inpatient Discharge Instructions Interventions: ED Discharge Assessment Last Done: 12/21/18 05:49 Discharge Problem: Alcohol intoxication Qualifiers: Complication of substance-induced condition: with unspecified complication Qualified Code(s): F10.929 - Alcohol use, unspecified with intoxication, un specified The scribe's documentation has been prepared under my direction and personally reviewed by me in its entirety. I confirm that the note above accurately reflects all work, treatment, procedures, and medical decision making performed by me.
[2018-12-21] MEDS ORDERED: BISMUTH SUBSALICYLATE PER ML OMNICELL CHARGE PO PRN (06:12)
[2018-12-21] MEDS ORDERED: ALUMINUM/MAGNESIUM SUSP 30 ML UDC PO PRN (06:12)
[2018-12-21] MEDS ORDERED: MAGNESIUM HYDROXIDE SUSP 30 ML UDC PO PRN (06:12)
[2018-12-21] MEDS ORDERED: NICOTINE POLACRILEX 2 MG GUM MT PRN (06:12)
[2018-12-21] MEDS ORDERED: ACETAMINOPHEN 325 MG TAB PO PRN (06:12)
[2018-12-21] MEDS ORDERED: SODIUM CHLORIDE 0.65% NA SOLN 45 ML (OCEAN) PRN (06:12)
[2018-12-21] MEDS ORDERED: LITHIUM CARBONATE 300 MG TAB PO SCH ×2 (09:00→22:00)
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
[2018-12-21] MEDS: ESCITALOPRAM OXALATE 10 MG TAB PO SCH (11:37)
[2018-12-21] MEDS: NICOTINE 14 MG/24 HR PATCH TD SCH ×2 (11:38→17:02)
[2018-12-21] MEDS: DIVALPROEX EXTENDED RELEASE 500 MG TAB PO SCH (20:52)
[2018-12-22] MEDS: DIVALPROEX EXTENDED RELEASE 500 MG TAB PO SCH ×2 (08:19→21:03)
[2018-12-22] MEDS: ESCITALOPRAM OXALATE 10 MG TAB PO SCH (08:19)
[2018-12-22] MEDS: NICOTINE 14 MG/24 HR PATCH TD SCH (08:19)
[2018-12-22] MEDS ORDERED: ESCITALOPRAM OXALATE 10 MG TAB PO SCH (09:00)
--- NOTE | 2018-12-22 12:29 | Psychiatric Progress Note ---
Date of Service December 22, 2018 Impression / Recommendations (1) Suicidal ideation: 12/21 - Pt denies he was suicidal at the time of his Lueders overdose; however, 302 warrant reports text messages were made to his significant other with statements that patient "wants to " and wished to "end his life. - Pt denies suicidal ideation at this time or history of suicide attempts; however, is dealing with significant outpatient stress and these texts and overdose should not be taken lightly - Admitted to a locked inpatient behavioral health unit, on q15 minute safety checks - Encourage medication initiation/adjustments as indicated - Encourage participation in group and recreational therapies - Gather collateral information from outpatient providers - Suggest family meeting to involve outpatient supports in safety planning - Arrange appropriate aftercare 12/22 - Pt continues to deny SI and thoughts of self-harm - Family meeting set up for tomorrow with mother and father (2) Mood disorder: 12/21 - Request outpatient records to determine current diagnosis. Bipolar disorder had been suggested, and certainly remains on the differential given family history. He denies any history of clearly manic symptoms on evaluation. Differential also includes major depressive disorder, dysthymic disorder, substance-induced mood disorder, adjustment disorder, or other diagnosis that may explain symptoms - For now, will treat as mood disorder, NOS with reported concerns of anger, episodes of depressed mood, and sleep disturbances - Reviewed potential to trial Depakote to target mood instability, with likelihood it may be more effective at providing some control over his anger outbursts. This medication would replace lithium, which reportedly had not been beneficial at its current dosage, and is highly lethal in overdose. - Will begin Depakote 500mg BID, starting this evening; discontinue lithium - Depakote level ordered for AM on 12/27/18 - Coordinate care with patient's outpatient providers - Encourage patient participation in group and recreational therapies - Encourage a family meeting with outpatient supports - likely either significant other or grandparents - Involve patient in discharge and safety planning 12/22 - Pt tolerating medication adjustments. Continue escitalopram 10mg and Depakote 500mg BID; can continue adjustments as needed - Family meeting with parents tomorrow - Continue to encourage work on healthy and effective coping strategies - Encourage patient to complete safety plan - Ensure aftercare appointments are scheduled (3) Intentional overdose of drug in tablet form: 12/21 - Pt reportedly took "triple the dose" of Lueders prior to admission, suggesting ingestion of ~1,350mg. - Lueders level in the ED was 0.6mmol/L, within a normal range, with no reports of symptoms to suggest toxicity - Will continue to monitor for symptoms of lithium toxicity; can order repeat level if necessary - Ultimately, lithium to be discontinued and replaced with Depakote as part of treatment plan (4) Alcohol intoxication: 12/21 - BAL on ED presenation was 170.0. - AWSS protocol ordered in order to recognize signs of withdrawal and treat accordingly - Reported history does not suggest withdrawal is likely, but will monitor none the less Inventory Assets Strengths: established outpatient providers, support of grandparents, stable housing with grandparents Needs: significant outpatient stressors (recent DUI, of , criminal investigation, [employer] involvement), relationship turmoil, effective medication adjustments Risk Factors Assessment Male: Yes : Yes Do You Have Access To A Gun?: No (locked up, patient denies access) Health Problems: No Mental Health Diagnoses: Yes Substance Use Disorders: No Previous Attempt: No Previous Psychiatric Hospitalization: No Hopelessness: Yes (episodically, related to stressors) Smoker: Yes Protective Factors Assessment Jehovah'S Witness Beliefs: No : No Responsible for Young Children: No ([employer] has custody presently) Employed: Yes Stable Relationships: No Supportive Family: Yes (grandparents supportive) Interval History Identifying Information EDUARDO CARTY is a 23-year-old M who currently lives in [place], having recently moved in with his grandparents. Pt has a history of psychiatric treatment with concerns for anger, and was admitted on 12/21/18 05:32 on a 302 involuntary commitment for sending suicidal texts to the mother of his children and intentionally ingesting "triple" his dose of Lueders. 302 expires on 12/26/18 by 0501. Chief Complaint "Things have been good, overall I just want to find better coping skills." Review of Systems Notes Constitutional: denied Cardiovascular: denied Respiratory: denied Gastrointestinal: denied Neurological: denied Psychiatric: denies symptoms other than stated above Total of at least 10 systems reviewed, pertinent positives as above and in HPI. Sleep Information Total Hours of Sleep: 6.25 Sleep Comments: pt on q-15 minute checks Meal Information Percent Meal Consumed - Breakfast: 75 Percent Meal Consumed - Lunch: 0 Percent Meal Consumed - Dinner: 100 Nutrition Comment: pt. asleep Subjective Subjective Patient was seen & assessed and interval progress reviewed with nursing and social work. Staff report the patient remained in his room for much of the day yesterday. He did come out of his room for dinner and most of the evening. Staff did talk with the patient's parents, who visited last night, and reported desire that the patient get drug and alcohol treatment. Pt did rate his mood a 4/10 and "irritated." Pt was seen today to assess progress since admission. Pt states he is doing well today, and reports he was able to discuss coping strategies in group therapy today. He was able to verbalize several coping strategies he feels he can use in the outpatient setting as well. Pt reports he received a visit from his parents and girlfriend last evening. The visit went well, and patient states his family was happy he is getting help. Pt reports that he has a family meeting scheduled with his parents for tomorrow afternoon. Pt states he is tolerating the addition of Depakote without any concerns. Pt denies suicidal ideation today. He does report ongoing difficulty sleeping. He was willing to discuss his typical sleep routine and accepted advice from this provider regarding eliminating screen time before bed. He was also reminded that there is prn medication available should he desire to utilize it. Pt crow es other needs or concerns today. Physical Exam Psychiatric Orientation: alert, oriented x 3 and cooperative Apperance: appropriately dressed, appropriately groomed and appeared stated age Eye Contact: good eye contact Motor Behavior: steady gait and station; + abnormal motor movements (noticeable facial tics-squinting & facial movements; not distressing to pt) Speech: normal rate/rhythm/volume of speech Affect: euthymic affect and mood congruent with affect; no anxious affect "I'm pretty good" Thought Process: goal directed thought process, linear/logical thought process and clear/coherent thought process Thought Content: reality based without delusions; no hopelessness and no worthlessness Suicidal Thoughts: denies suicidal thoughts and denies suicidal intent Homicidal Thoughts: denies homicidal thoughts Hallucinations: no auditory hallucinations and no visual hallucinations Cognition: remote memory grossly intact, attention grossly intact and language grossly intact Estimated Intelligence: consistent with education level Insight: + fair insight Judgement: + fair judgement Vital Signs (Past 24 Hours) Last Vital Signs Temp 36.8 C 12/22/18 08:59 Pulse 83 08/22/19 08:59 Resp 16 12/22/18 08:59 BP 139/88 12/22/18 08:59 Pulse Ox 97 12/21/18 03:42 Results & Data Current Inpatient Medications Current Inpatient Medications: Current Inpatient Medications Acetaminophen (Tylenol) 650 mg PO Q4H PRN PRN Reason: Headache or Minor Fever Stop: 01/20/19 06:11 Al Hydrox/Mg Hydrox/Simethicone (Maalox) 30 ml PO Q4H PRN PRN Reason: GI Upset Stop: 01/20/19 06:11 Bismuth Subsalicylate (Kaopectate) 15 ml PO PRN PRN PRN Reason: Loose Stool Stop: 01/20/19 06:11 Divalproex Sodium (Depakote Extended Release) 500 mg PO BID REPLACED BY [facility] Stop: 01/20/19 20:59 Last Admin: 12/22/18 08:19 Dose: 500 mg Documented by: Escitalopram Oxalate (Lexapro Tab) 10 mg PO QAM REPLACED BY [facility] Stop: 01/20/19 08:59 Last Admin: 12/22/18 08:19 Dose: 10 mg Documented by: Hydroxyzine HCl (Vistaril) 50 mg PO HSZ PRN PRN Reason: Insomnia Stop: 01/20/19 06:11 Hydroxyzine HCl (Vistaril) 25 mg PO Q4H PRN PRN Reason: Anxiety Stop: 01/20/19 06:11 Magnesium Hydroxide (Milk Of Magnesia) 30 ml PO DAILY PRN PRN Reason: Heartburn Stop: 01/20/19 06:11 Miscellaneous (Remove Nicoderm Patch) 1 ea N/A DAILY@2200 REPLACED BY [facility] Stop: 01/20/19 21:59 Last Admin: 12/21/18 20:52 Dose: 1 ea Documented by: Nicotine (Nicoderm Cq) 14 mg TD QAM REPLACED BY [facility] Stop: 01/20/19 08:59 Last Admin: 12/22/18 08:19 Dose: 14 mg Documented by: Nicotine Polacrilex (Nicorette 2mg) 1 piece MT UD PRN PRN Reason: Nicotine Withdrawal Stop: 01/20/19 06:11 Sodium Chloride ([place] Nasal) 1 - 2 sprays NA PRN PRN PRN Reason: Nasal Dryness/Congestion Stop: 01/20/19 06:11 Mental Health & Subst Abuse Tx Psychiatrist Name of Psychiatrist: NEETA Marco Stuart Psychiatrist's Date of Appointment with Psychiatrist: 12/27/18 Time of Appointment with Psychiatrist: 10am Psychiatric Appointment Comment: [address] [place] [place] [address] Therapist Name of Therapist: Kalie Leyva Therapist's Date of Therapist Appointment: 12/26/18 Time of Therapist Appointment: 12pm Therapy Appointment Comment: [address] [facility], [place] [address] Garment Fitter Name of Garment Fitter: Denies Post Discharge Appointments Primary Care Physician Name Of Family Doctor: JO[facility] Time of Appointment with PCP: Follow up as needed. Provider Appointment Comment: [address] [place] [address] Other #1: Name of Aftercare Appointment: [employer] Phone Number of Aftercare Appointment: [phone] Aftercare Appointment Comment: [address] [facility] [place] [address] Contact Information Discharge Discharge Address: [address] [place] [address] [place] [address] CPT Code CPT Code 46771 (1) Alcohol intoxication Complication of substance-induced condition: with unspecified complication Qualified Code(s): F10.929 - Alcohol use, unspecified with intoxication, unspecified
[2018-12-23] MEDS: ESCITALOPRAM OXALATE 10 MG TAB PO SCH (08:47)
[2018-12-23] MEDS: DIVALPROEX EXTENDED RELEASE 500 MG TAB PO SCH (08:47)
[2018-12-23] MEDS: NICOTINE 14 MG/24 HR PATCH TD SCH (08:50)
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
== END 2018-12-23 14:32 | disposition home or self-care (01) | DRG 885 ==
LOC: ED 00:14 → 3S 05:32